=== PATIENT | male | born 1945 | race Caucasian/White ===

== ENCOUNTER 2017-02-05 09:56 | Emergency (ER) | payer MEDICARE ==
[~2017-02-05] VITALS: Ht 172.7 cm; Wt 70.0 kg
[~2017-02-05 09:56] MED LIST: ALEVE220 M1 PO; ALLERGY MEDICAT25 MG PO; CARAFATE1 GM PO; LEVOTHYROXIN25 MC1 PO; LEVOTHYROXIN50 MCG PO; METOPROL TAR25 MG PO; MULTI; NITROSTAT0.4 MG SL; PLAVIX75 MG PO; VIAGRA100 MG OR; ZITHROMAX200 MG/5 M OR
[2017-02-05] MEDS ORDERED: CARDIZEM CD120 MG PO (10:23)
[2017-02-05] MEDS ORDERED: ASPIRIN ADULT L81 MG PO (10:23)
[2017-02-05] MEDS ORDERED: DIGITEK0.125 M1 (10:24)
[2017-02-05] MEDS ORDERED: AMBIEN10 MG PO (10:24)
[2017-02-05 10:37] LABS: HEMATOCRIT 39.2 % (39.0-50.0); IMMATURE GRANULOCYTES 2.3 % (0.0-1.0); MEAN CELL VOLUME 82.7 fL CALC (80.0-100.0); MEAN CORPUSCULAR HGB 25.3 pG CALC (26.0-32.0); MEAN CORPUSCULAR HGB CONC 30.6 g/L CALC (32.0-36.0); NEUT# 8.24 thou/uL (1.82-7.42); RED BLOOD COUNT 4.74 mill/uL (4.70-6.10); RED CELL DISTRI WIDTH 18.5 % (11.5-15.5)
[2017-02-05 11:05] LABS: ALBUMIN 3.8 g/dL (3.2-5.0); ALKALINE PHOSPHATASE 111 u/l (38-126); ANION GAP 13 (6-22 (CALC)); BILIRUBIN, TOTAL 0.7 mg/dL (0.0-1.4); BUN 25 mg/dL (8-23); BUN/CREATININE RATIO 31 (12-20 (CALC)); CALCIUM 9.2 mg/dL (8.4-10.2); CARBON DIOXIDE 31 mmol/l (22-30); CHLORIDE 96 mmol/l (95-108); CREATININE 0.8 mg/dL (0.7-1.3); GFR > 60 ML/MIN (>=60 (CALC)); GFR FOR AFR.AMER. > 60 ML/MIN (>=60 (CALC)); GLUCOSE 116 mg/dL (82-115); POTASSIUM 4.1 mmol/l (3.5-5.1); SGOT/AST 50 u/l (19-48); SGPT/ALT 27 u/l (11-66); SODIUM 137 mmol/l (137-146); TOTAL PROTEIN 8.1 g/dL (6.3-8.2)
[2017-02-05 11:06] LABS: INTERNATIONAL NORMALIZED RATIO 1.1 RATIO (0.7-1.3); PROTHROMBIN TIME 11.5 SECONDS (9.0-12.5)
[2017-02-05 11:15] LABS: MYOGLOBIN 39 ng/mL (0 - 121)
[2017-02-05 19:11] LABS: URINE BILIRUBIN - DIPSTICK NEGATIVE (NEGATIVE); URINE BLOOD DIPSTICK NEGATIVE (NEGATIVE); URINE CLARITY CLEAR; URINE COLOR YELLOW; URINE GLUCOSE - DIPSTICK NEGATIVE (NEGATIVE); URINE KETONE NEGATIVE (NEGATIVE); URINE LEUK ESTERASE NEGATIVE (NEGATIVE); URINE NITRITE - DIPSTICK NEGATIVE (Negative); URINE PROTEIN - DIPSTICK NEGATIVE (NEG-TRACE); URINE UROBILINOGEN - DIPSTICK 0.2 E.U./dL (0.2)
[2017-02-06 07:15] VITALS: BP 126/66
== END 2017-02-06 07:05 ==
LOC: ED 09:56
PROVIDERS: Emergency Medicine
DX: I48.91 Unspecified atrial fibrillation (principal); I48.92 Unspecified atrial flutter; Z79.01 Long term (current) use of anticoagulants; R09.02 Hypoxemia; J44.9 Chronic obstructive pulmonary disease, unspecified; C34.90 Malignant neoplasm of unspecified part of unspecified bronchus or lung; F17.200 Nicotine dependence, unspecified, uncomplicated; R11.0 Nausea; I10 Essential (primary) hypertension
CPT/HCPCS: J1160; J1650